=== PATIENT | male | born 1935 | race Caucasian/White ===

== ENCOUNTER 2017-02-28 09:16 | Emergency (ER) | payer OTHER, MEDICAID ==
[~2017-02-28] VITALS: Ht 167.6 cm; Wt 70.4 kg
[2017-02-28] MEDS ORDERED: DEXTROSE 50%-WATER 25 GM/50 ML SYRINGE IVP ONE ×4 (09:25→16:15)
[2017-02-28 10:02] LABS: GLUCOSE,POINT OF CARE 76 MG/DL (70-110)
[2017-02-28 10:11] LABS: BASOPHILS % (AUTO) 0.4 % (0.0-2.0); EOSINOPHILS % (AUTO) 0.5 % (1.0-6.0); HEMATOCRIT 44.6 % (41-53); HEMOGLOBIN 14.4 g/dL (13.5-17.5); LYMPHOCYTES # (AUTO) 0.8 K/uL (1.0-4.8); LYMPHOCYTES % (AUTO) 13.1 % (22.0-44.0); MEAN CORPUSCULAR HEMOGLOBIN 31.1 pg (26.0-34.0); MEAN CORPUSCULAR HGB CONC 32.3 G/dL (31.0-37.0); MEAN CORPUSCULAR VOLUME 96 fL (80-100); MONOCYTES # (AUTO) 0.2 K/uL (0.1-1.0); MONOCYTES % (AUTO) 3.9 % (2.0-9.0); NEUTROPHILS # (AUTO) 4.7 K/uL (1.8-7.7); NEUTROPHILS % (AUTO) 82.1 % (40.0-70.0); PLATELET COUNT (AUTO) 116 K/uL (150-450); RED BLOOD CELL COUNT(AUTO) 4.64 MIL/uL (4.50-5.90); RED CELL DISTRIBUTION WIDTH 14.3 % (11.5-14.5); WHITE BLOOD COUNT (AUTO) 5.7 K/uL (4.5-11.0)
[2017-02-28 10:16] LABS: INR 1.1 (0.9-1.1); PROTHROMBIN TIME 11.1 SEC (9.4-11.6)
[2017-02-28 10:38] LABS: ANION GAP 6 mmol/L (8-16); CALCIUM, TOTAL 8.7 mg/dL (8.8-10.5); CARBON DIOXIDE 31 mmol/L (22-29); CHLORIDE 105 mmol/L (98-107); CREATININE 0.82 mg/dL (0.60-1.30); GLOMERULAR FILTR. RATE CALC > 60 mL/min (>60); POTASSIUM 3.4 mmol/L (3.5-5.1); SODIUM SERUM 142 mmol/L (136-145); UREA NITROGEN, BLOOD 21 mg/dL (7-18)
[2017-02-28 10:44] LABS: ALANINE AMINOTRANSFERASE 18 U/L (12-78); ALBUMIN 3.3 g/dL (3.4-5.0); ASPARTATE AMINOTRANSFERASE 22 U/L (15-37); BILIRUBIN,TOTAL 0.4 mg/dL (0.1-1.0); TOTAL PROTEIN, SERUM 7.5 g/dL (6.4-8.2)
[2017-02-28 10:47] LABS: AMMONIA 18 umol/L (11-32); TROPONIN I < 0.02 ng/mL (0.00-0.05)
[2017-02-28 10:48] LABS: LACTIC ACID 1.4 mmol/L (0.4-2.0)
[2017-02-28 11:22] LABS: GLUCOSE,POINT OF CARE 69 MG/DL (70-110)
[2017-02-28] MEDS ORDERED: METO25 PO (11:22)
[2017-02-28] MEDS ORDERED: ISOS30TA6 PO (11:22)
[2017-02-28] MEDS ORDERED: PANT40TA25 PO (11:22)
[2017-02-28] MEDS ORDERED: DSS100 PO (11:22)
[2017-02-28] MEDS ORDERED: LINA5TAB PO (11:22)
[2017-02-28] MEDS ORDERED: SERT50TA12 PO (11:22)
[2017-02-28] MEDS ORDERED: CANA100T PO (11:22)
[2017-02-28] MEDS ORDERED: SIMV20 PO (11:22)
[2017-02-28] MEDS ORDERED: CLOP75 PO (11:22)
[2017-02-28] MEDS ORDERED: PIOG45TA PO (11:22)
[2017-02-28] MEDS ORDERED: NITR.4 SL (11:22)
[2017-02-28] MEDS ORDERED: METOPROLOL TARTRATE 50 MG TABLET PO ONE (12:15)
[2017-02-28] MEDS ORDERED: ISOSORBIDE MONONITRATE 60 MG ER TABLET PO ONE (12:15)
[2017-02-28] MEDS ORDERED: CLOPIDOGREL BISULFATE 75 MG TABLET PO ONE (12:15)
[2017-02-28 12:21] LABS: APPEARANCE,URINE CLEAR (CLEAR); GLUCOSE, URINE (UA) >=1000 mg/dL (NEGATIVE); KETONES,URINE NEGATIVE (NEGATIVE); LEUKOCYTE ESTERASE ,URINE NEGATIVE (NEGATIVE); OCCULT BLOOD,URINE NEGATIVE (NEGATIVE); PH,URINE 7.5 (5.0-8.0); PROTEIN,URINE NEGATIVE (NEGATIVE)
[2017-02-28 12:32] LABS: GLUCOSE,POINT OF CARE 55 MG/DL (70-110)
[2017-02-28 12:40] LABS: RBC,URINE None Seen /HPF (0-2); SQUAMOUS EPITHELIAL CELL,UR Rare /LPF (None Seen); WBC,URINE 0-2 /HPF (0-5)
[2017-02-28 13:26] LABS: GLUCOSE,POINT OF CARE 73 MG/DL (70-110)
[2017-02-28 14:42] LABS: GLUCOSE,POINT OF CARE 162 MG/DL (70-110)
[2017-02-28 16:11] LABS: GLUCOSE,POINT OF CARE 152 MG/DL (70-110)
[2017-02-28 17:09] VITALS: BP 131/75
== END 2017-02-28 17:13 | disposition home or self-care (01) ==
LOC: EMS 09:20
DX: E11.649 Type 2 diabetes mellitus with hypoglycemia without coma (principal); E78.00 Pure hypercholesterolemia, unspecified; I10 Essential (primary) hypertension; Z79.4 Long term (current) use of insulin
CPT/HCPCS: 36415; 70450; 71010; 80053; 80307; 81001; 82140; 82948; 82962; 83605; 83690; 84484; 85025; 85610; 93005; 96374; 96376; 99285; G0480

== ENCOUNTER 2017-11-19 20:39 | Emergency (ER) | payer MEDICAID, OTHER ==
[~2017-11-19] VITALS: Ht 165.1 cm; Wt 73.6 kg
[~2017-11-19 20:39] MED LIST: AMLO-511 PO; CANA100T PO; CLOP75 PO; DSS100 PO; INS7030 SQ; ISOS30TA6 PO; LINA5TAB PO; METO25 PO; NITR.4 SL; PANT40TA25 PO; PIOG30TA10 PO; PIOG45TA4 PO; SERT50TA12 PO; SIMV-260 PO; VALS80TA2 PO
[2017-11-19] MEDS ORDERED: ATOR40TA28 PO (21:17)
[2017-11-19] MEDS ORDERED: LINA5TAB PO (21:17)
[2017-11-19] MEDS ORDERED: DOCU-275 PO (21:17)
[2017-11-19] MEDS ORDERED: METO25 PO (21:17)
[2017-11-19] MEDS ORDERED: LOSA50TA37 PO (21:17)
[2017-11-19] MEDS ORDERED: CLOP75 PO (21:17)
[2017-11-19] MEDS ORDERED: PIOG45TA4 PO (21:17)
[2017-11-19] MEDS ORDERED: ACET-48 PO (21:17)
[2017-11-19 21:18] LABS: BASOPHILS # (AUTO) 0.04 K/uL (0.00-0.20); BASOPHILS % (AUTO) 0.5 % (0.0-2.0); EOSINOPHILS # (AUTO) 0.01 K/uL (0.00-0.70); EOSINOPHILS % (AUTO) 0.09 % (1.0-6.0); HEMATOCRIT 45.2 % (41-53); HEMOGLOBIN 14.8 g/dL (13.5-17.5); LYMPHOCYTES # (AUTO) 0.8 K/uL (1.0-4.8); LYMPHOCYTES % (AUTO) 9.9 % (22.0-44.0); MEAN CORPUSCULAR HGB CONC 32.7 G/dL (31.0-37.0); MEAN CORPUSCULAR VOLUME 98 fL (80-100); MONOCYTES # (AUTO) 0.2 K/uL (0.1-1.0); MONOCYTES % (AUTO) 2.7 % (2.0-9.0); NEUTROPHILS # (AUTO) 7.3 K/uL (1.8-7.7); RED BLOOD CELL COUNT(AUTO) 4.61 MIL/uL (4.50-5.90); RED CELL DISTRIBUTION WIDTH 13.2 % (11.5-14.5)
[2017-11-19 21:20] LABS: NEUTROPHILS % (AUTO) 86.8 % (40.0-70.0)
[2017-11-19 21:34] LABS: ALBUMIN 2.8 g/dL (3.4-5.0); BILIRUBIN,TOTAL 0.8 mg/dL (0.1-1.0); CALCIUM, TOTAL 9.5 mg/dL (8.8-10.5); CREATININE 1.17 mg/dL (0.60-1.30); POTASSIUM 4.4 mmol/L (3.5-5.1)
[2017-11-19 21:35] LABS: INFLUENZA TYPE A NEGATIVE FOR TYPE A (NEGATIVE); INFLUENZA TYPE B NEGATIVE FOR TYPE B (NEGATIVE)
[2017-11-19 21:38] LABS: PLATELET COUNT (AUTO) 78 K/uL (150-450); PLATELET MORPHOLOGY COMMENT DECREASED
[2017-11-20 01:08] LABS: GLUCOSE,POINT OF CARE 433 MG/DL (70-110)
[2017-11-20] MEDS ORDERED: IPRATROPIUM BROMIDE 0.5 MG/2.5 ML NEB SOLUTION NEB ONE (02:00)
[2017-11-20] MEDS ORDERED: ACETAMINOPHEN 500 MG TABLET PO ONE (02:00)
[2017-11-20] MEDS ORDERED: METOPROLOL TARTRATE 50 MG TABLET PO ONE (02:00)
[2017-11-20] MEDS ORDERED: ALBUTEROL SULFATE 2.5 MG/0.5 ML NEB SOLUTION NEB ONE (02:00)
[2017-11-20] MEDS ORDERED: LEVOFLOXACIN 500 MG/D5% WATER 100 ML IV ONE (02:00)
[2017-11-20] MEDS ORDERED: SODIUM CHLORIDE 0.9% 1,000 ML IV ONE ×2 (02:00→04:30)
[2017-11-20] MEDS ORDERED: 0.9% SODIUM CHLORIDE 5 ML NEB SOLUTION NEB ONE (02:42)
[2017-11-20 04:13] LABS: GLUCOSE,POINT OF CARE 392 MG/DL (70-110)
[2017-11-20] MEDS ORDERED: INSULIN REGULAR, HUMAN 100 UNITS/ML IVP ONE ×2 (04:30→05:45)
[2017-11-20 05:37] LABS: GLUCOSE,POINT OF CARE 322 MG/DL (70-110)
[2017-11-20 06:00] VITALS: BP 137/66
[2017-11-20 06:12] LABS: GLUCOSE,POINT OF CARE 319 MG/DL (70-110)
== END 2017-11-20 06:43 | disposition home or self-care (01) ==
LOC: EMS 20:40
DX: J18.9 Pneumonia, unspecified organism (principal); E11.65 Type 2 diabetes mellitus with hyperglycemia; E86.0 Dehydration; E78.00 Pure hypercholesterolemia, unspecified; I10 Essential (primary) hypertension; Z95.0 Presence of cardiac pacemaker; Z86.73 Personal history of transient ischemic attack (TIA), and cerebral infarction without residual deficits
CPT/HCPCS: 36415; 71045; 80053; 82962; 83605; 83880; 84484; 85025; 87040; 87077; 87186; 87804; 93005; 94640; 96365; 96375; 96376; 99285; J1815; J1956; J7030; J7613

== ENCOUNTER 2018-02-17 18:57 | Emergency (ER) | payer OTHER, MEDICAID ==
[~2018-02-17] VITALS: Ht 175.3 cm; Wt 70.5 kg
[~2018-02-17 18:57] MED LIST changes: +ACET-48 PO; -AMLO-511 PO; +ATOR40TA28 PO; -CANA100T PO; +DOCU-275 PO; -DSS100 PO; -INS7030 SQ; -ISOS30TA6 PO; +LOSA50TA37 PO; -NITR.4 SL; -PANT40TA25 PO; -PIOG30TA10 PO; -SIMV-260 PO; -VALS80TA2 PO
[2018-02-17] MEDS ORDERED: INSNOV SQ ×2 (19:06)
[2018-02-17] MEDS ORDERED: LINA5TAB PO (19:06)
[2018-02-17 19:13] LABS: GLUCOSE,POINT OF CARE > 600 MG/DL (70-110)
[2018-02-17] MEDS ORDERED: SODIUM CHLORIDE 0.9% 1,000 ML IV ONE (19:45)
[2018-02-17 20:11] LABS: BASOPHILS % (AUTO) 0.4 % (0.0-2.0); EOSINOPHILS % (AUTO) 0.5 % (1.0-6.0); HEMATOCRIT 46.7 % (41-53); HEMOGLOBIN 15.3 g/dL (13.5-17.5); LYMPHOCYTES # (AUTO) 1.1 K/uL (1.0-4.8); MEAN CORPUSCULAR HEMOGLOBIN 32.5 pg (26.0-34.0); MEAN CORPUSCULAR HGB CONC 32.8 G/dL (31.0-37.0); MEAN CORPUSCULAR VOLUME 99 fL (80-100); MONOCYTES # (AUTO) 0.6 K/uL (0.1-1.0); MONOCYTES % (AUTO) 6.7 % (2.0-9.0); NEUTROPHILS # (AUTO) 6.5 K/uL (1.8-7.7); NEUTROPHILS % (AUTO) 79.4 % (40.0-70.0); PLATELET COUNT (AUTO) 114 K/uL (150-450); RED BLOOD CELL COUNT(AUTO) 4.72 MIL/uL (4.50-5.90); RED CELL DISTRIBUTION WIDTH 13.1 % (11.5-14.5)
[2018-02-17 20:16] LABS: ALBUMIN 3.2 g/dL (3.4-5.0); BILIRUBIN,TOTAL 0.5 mg/dL (0.1-1.0); CALCIUM, TOTAL 10.1 mg/dL (8.8-10.5); CREATININE 1.45 mg/dL (0.60-1.30); POTASSIUM 5.4 mmol/L (3.5-5.1)
[2018-02-17 20:29] LABS: PLATELET MORPHOLOGY COMMENT LARGE PLTS PRESENT
[2018-02-17 20:58] LABS: APPEARANCE,URINE CLEAR (CLEAR); BILIRUBIN,URINE NEGATIVE (NEGATIVE); GLUCOSE, URINE (UA) >=1000 mg/dL (NEGATIVE); KETONES,URINE 40 mg/dL (NEGATIVE); LEUKOCYTE ESTERASE ,URINE SMALL (NEGATIVE); NITRATE,URINE NEGATIVE (NEGATIVE); OCCULT BLOOD,URINE NEGATIVE (NEGATIVE); PH,URINE 5.5 (5.0-8.0); PROTEIN,URINE NEGATIVE (NEGATIVE); UROBILINOGEN,URINE 0.2 mg/dL (<=1.0)
[2018-02-17 21:12] LABS: GLUCOSE,POINT OF CARE 481 MG/DL (70-110)
[2018-02-17 21:18] LABS: BACTERIA,URINE Few /HPF (None Seen); SQUAMOUS EPITHELIAL CELL,UR Few /LPF (None Seen); YEAST,URINE Moderate /HPF (None Seen)
[2018-02-17 21:20] LABS: RBC,URINE 0-2 /HPF (0-2)
[2018-02-17 21:46] LABS: ALBUMIN 2.7 g/dL (3.4-5.0); BILIRUBIN,TOTAL 0.4 mg/dL (0.1-1.0); CALCIUM, TOTAL 9.4 mg/dL (8.8-10.5); CREATININE 1.17 mg/dL (0.60-1.30); POTASSIUM 4.6 mmol/L (3.5-5.1); TOTAL PROTEIN, SERUM 7.1 g/dL (6.4-8.2)
[2018-02-17] MEDS ORDERED: INSULIN REGULAR, HUMAN 100 UNITS/ML IVP ONE (22:00)
[2018-02-17 23:08] LABS: GLUCOSE,POINT OF CARE 386 MG/DL (70-110)
[2018-02-18 00:12] LABS: GLUCOSE,POINT OF CARE 343 MG/DL (70-110)
[2018-02-18 02:30] VITALS: BP 133/57
== END 2018-02-18 03:35 | disposition short-term general hospital (02) ==
LOC: EMS 18:58
DX: E87.0 Hyperosmolality and hypernatremia (principal); N17.9 Acute kidney failure, unspecified; E11.65 Type 2 diabetes mellitus with hyperglycemia; E78.00 Pure hypercholesterolemia, unspecified; I10 Essential (primary) hypertension; Z79.4 Long term (current) use of insulin
CPT/HCPCS: 36415; 70450; 71045; 80053; 81001; 82962; 84484; 85025; 87086; 87106; 93005; 96361; 96374; 99291; J1815; J7030